=== PATIENT | female | born 1930 | race Caucasian/White ===

== ENCOUNTER → 2016-08-11 | Outpatient (CLI) | payer OTHER, MEDICARE | LOC: BHFA 10:45 | PROVIDERS: ATTEND Internal Medicine Cardiovascular Disease | DX: I63.9 Cerebral infarction, unspecified (principal) ==

== ENCOUNTER 2017-01-31 18:22 | Emergency (ER) | payer OTHER, MEDICARE ==
--- NOTE | 2017-01-31 18:39 | EDPHY ---
H & P HPI/ROS: CHIEF COMPLAINT: facial laceration HISTORY OF PRESENT ILLNESS: This patient is a healthy 86 year old female arriving via EMS from home with a laceration to her left forehead sustained after hitting her head on the floor against her glasses. She states she lost her balance getting off the toilet, but denies dizziness or fainting, and is unable to identify any other precipitating event. No recent trouble with loss of balance or dizziness. This was an isolated episode and she does not feel dizzy now. She denies headache or neck pain. No fever, chills, nausea, weakness, or other associated symptoms. REVIEW OF SYSTEMS: Constitutional: No fever, no chills Eyes: No visual changes ENT: No sore throat Respiratory: No cough, no shortness of breath Cardiac: No chest pain Gastrointestinal: No nausea, no vomiting, no abdominal pain Genitourinary: no dysuria Musculoskeletal: No extremity pain or injury Skin: No rash Neurological: No headache, no numbness, no weakness Psychiatric: No depression Past Medical/Surgical History: Macular degeneration Social History: Nonsmoker. Smoking Status: Never smoked Physical Exam: General Appearance: Alert, pleasant Head: 3cm laceration to left forehead with disruption of galea Eyes: No conjunctival erythema, PERRLA, EOMI ENT, Mouth: No hemotypanum, no oral trauma, no bony tenderness Neck: Non-tender, full range of motion without pain Respiratory: No chest wall tenderness, lungs clear bilaterally Cardiovascular: Regular rate and rhythm Abdomen: Abdomen is soft and non tender Skin: Forehead laceration (see head) Extremities: Nonfocal. Full range of motion without pain Neurological: A&Ox3, normal motor function, normal sensory exam, cranial nerves intact Psychiatric: Mood and affect normal Constitutional: Initial Vital Signs Temperature (C) 37 C 01/31/17 18:28 Heart Rate 78 01/31/17 18:28 Respiratory Rate 15 01/31/17 18:28 Blood Pressure 137/76 H 01/31/17 18:28 O2 Sat (%) 93 01/31/17 18:28 O2 Delivery Mode Room Air Allergies/Adverse Reactions: No Known Allergies Allergy (Verified 01/31/17 18:28) Home Medications: Medication Instructions Recorded Preservision Areds 2 Softgel PO DAILY 12/11/15 Vitamin C PO 12/11/15 Medical Decision Making - Diagnostics Imaging: Discussed imaging studies w/ faculty i on call medical assistant Radiologist Procedures: Procedure: Laceration repair. Verbal consent was obtained from the patient. The linear 3cm laceration on the left forehead was anesthetized using lidocaine 1% with epinephrine. The wound was cleaned with standard ED protocol, draped and explored to its base with a gloved finger. The galea was disrupted. 5 0 Vicryl, 1 suture, to repair the galea. 6 0 Ethilon to repair the scan. The procedure was performed by myself, Dr. Winston. ED Course/Re-evaluation: This patient is an 86 year old female presenting with a 3cm laceration to her left forehead. Plan for CT head to rule out acute intracranial hemorrhage or skull fracture. Spoke with Dr. Esquivel, radiologist. Head CT is negative. The patient tolerated the procedure well. Able to ambulate with a steady gait. She does not feel dizzy or off balance. She will be discharged home in good condition. Return precautions discussed including symptoms of head injury. The patient is comfortable with this plan. Differential Diagnosis: The differential diagnosis for the patient's trauma included but was not limited to skull fracture, cervical spine fracture, intracranial hemorrhage, and spinal injury. - Data Points Medications Given: Discontinued Medications Diphtheria/Tetanus/Acell Pertussis (Boostrix) 0.5 ml IM .ONCE ONE Stop: 01/31/17 19:14 Last Admin: 01/31/17 19:27 Dose: 0.5 ml Departure - Departure Disposition: Home, Routine, Self-Care Clinical Impression: Facial laceration Qualifiers: Encounter type: initial encounter Qualified Code(s): S01.81XA - Laceration without foreign body of other part of head, initial encounter Condition: Good Instructions: Care For Your Stitches (ED), Head Injury (ED), Facial Laceration (ED) Additional Instructions: 1. Return to the Emergency Department in 5 days for suture removal. 2. Keep the suture site clean and dry. You may shower, but do not soak the site. 3. Return the the Emergency department if you develop heat, redness, or drainage to the injury area, or if you experience weakness or numbness on one side of your body, nausea, severe headache, or other worsening of condition. Referrals: Taryn Turner MD [Medical Doctor] - As per Instructions Report Scribed for: Viviana Winston Report Scribed by: Kristy Reyes Date of Report: 01/31/17 Time of Report: 18:40 Physician Review and Approval Statement: 01/31/17 19:09 Portions of this note were transcribed by a medical manager. I personally performed a history, physical exam, medical decision making, and confirmed accuracy of information the transcribed note.
[2017-01-31] MEDS ORDERED: TDAP ADULT 0.5 ML INJ (BOOSTRIX) IM ONE (19:13)
[2017-01-31 20:12] VITALS: BP 135/68; PULSE 74; RESP 16; TEMP 98.6; O2SAT 94
== END 2017-01-31 20:21 | disposition home or self-care (01) ==
LOC: EDUNIT#
PROC: 0HQ1XZZ Repair Face Skin, External Approach (ICD-10-PCS; principal; 2017-01-31)
DX: S01.81XA Laceration without foreign body of other part of head, initial encounter (principal); Z23 Encounter for immunization; W25.XXXA Contact with sharp glass, initial encounter; Y92.009 Unspecified place in unspecified non-institutional (private) residence as the place of occurrence of the external cause

== ENCOUNTER → 2017-07-14 | Outpatient (CLI) | payer OTHER, MEDICARE | LOC: FIMAGING 12:45 | PROVIDERS: ATTEND Internal Medicine | DX: Z12.31 Encounter for screening mammogram for malignant neoplasm of breast (principal) | CPT/HCPCS: G0202 ==

== ENCOUNTER 2017-10-28 15:19 | Inpatient (IN) | payer OTHER, MEDICARE ==
--- NOTE | 2017-10-28 15:22 | EDPHY ---
H & P Time Seen by Provider: 10/28/17 15:21 HPI/ROS: HPI: This is a 86-year-old female who presents with Chief Complaint: Fall in bath tub approximately 6 hr prior to arrival Location: Body Quality: Fall Duration: Unknown Signs and Symptoms: No bleeding, no radiation, no numbness, no weakness, no tingling, no incontinence, no decreased range of motion, no swelling, + pain, no fever Timing: Unknown Severity: [id number] Context: Patient presents via EMS with patient advocate, resident at [facility], full code status. Physician order lab work this morning that showed leukocytosis of 12 K. Patient advocate reports that patient has had lethargy over the last 2 days with a mild nonproductive cough. When the patient advocate went back to [facility] patient was laying next to the bath tub. Patient has dementia and is unclear how long that she was sitting next to the tub. Complains of some left hip pain. Ambulatory at the scene with cashier assistant. LOC unknown. Time of fall unknown but last seen for breakfast. Modifying Factors: none Comment: ROS: Limited due to dementia MEDICAL/SURGICAL/SOCIAL HISTORY: Medical history: Macular degeneration Surgical history: Denies Social history: Lives at [facility] CONSTITUTIONAL: petite, elderly white female, awake and alert, no obvious distress HEENT: Atraumatic and normocephalic, PERRL, EOMI. no globe entrapment, no raccoon eyes. no Raya signs.Tympanic membranes clear. No tympanic membrane rupture. Nares patent; no septal hematoma. Oropharynx clear, no exudate and moist pink mucosa. No malocclusion. no dental trauma. Airway patent. No lymphadenopathy. No JVD. NECK: supple, no midline tenderness, flexion 45 degrees, extension 45 degrees, right and left lateral flexion 45 degrees. No meningismus. Cardiovascular: Normal S1/S2, regular rate, regular rhythm, without murmur rub or gallop. PULMONARY/CHEST: Symmetrical and nontender. no crepitus. Rhonchi and rales bilaterally. Good air movement. No accessory muscle usage. ABDOMEN: Soft, nondistended, nontender, no ecchymosis, no rebound, no guarding , no peritoneal signs, no masses or organomegaly. No CVAT. PELVIC: Moderate pain with rocking; left hip pain with flexion and extension as well as internal and external rotation. BACK: No midline tenderness, no paraspinous spasm, deep tendon reflexes 2/2, no pain with right straight leg raise EXTREMITIES: 2/2 pulses, no deformities, no clubbing, no cyanosis or edema. NEUROLOGICAL: no focal neuro deficits. Alert to self and follows simple commands. SKIN: Warm and dry, pallor, no erythema. no rash. Good capillary refill. Source: Patient, Family (Patient advocate) Exam Limitations: Clinical condition - Medical/Surgical History Hx Asthma: No Hx Chronic Respiratory Disease: No Hx Diabetes: No Hx Cardiac Disease: No Hx Renal Disease: No Hx Cirrhosis: No Hx Alcoholism: No Hx HIV/AIDS: No Hx Splenectomy or Spleen Trauma: No Other PMH: macular degeneration - Social History Smoking Status: Never smoked Constitutional: Initial Vital Signs Temperature (C) 36.6 C 10/28/17 15:27 Heart Rate 87 10/28/17 15:27 Respiratory Rate 16 10/28/17 15:27 Blood Pressure 123/75 H 10/28/17 15:27 O2 Sat (%) 90 L 10/28/17 15:27 O2 Delivery Mode Room Air Allergies/Adverse Reactions: No Known Allergies Allergy (Verified 01/31/17 18:28) Home Medications: Medication Instructions Recorded Preservision Areds 2 Softgel PO DAILY 12/11/15 Vitamin C PO 12/11/15 Medical Decision Making - Diagnostics EKG Interpretation: 12 lead EKG: Indication: Hypoxia Rhythm: Normal sinus rhythm, rate 76 per per minute [place]: Left Intervals: Normal 1st degree AV block ST segments: Nonspecific changes T segments: Inverted T-waves INTERPRETATION: No acute ischemic changes The 12 lead EKG was interpreted by myself and with attending. Imaging Results: Imaging Impressions Chest X-Ray 10/28/17 15:36 Impression: 1. Cardiomegaly without failure 2. No pneumonia or evidence for fat embolism. 2. Left Hip Technique: AP pelvis and frog-leg left hip. Clinical Indications: Pain post fall Findings: There is a subtly impacted subcapital left hip fracture. The pelvic ring is intact. The right hip looks normal. There are calcified pelvic uterine fibroids. Impression: Left subcapital hip fracture. Head CT 10/28/17 15:51 Impression: Advanced senescent features, with no acute intracranial abnormality identified on this unenhanced CT evaluation. If there is further clinical concern regarding the patient's symptoms, MR imaging is suggested, if not otherwise contraindicated. Findings were discussed with Sarah Pereyra PA-C at 16:45, on 10/28/2017. Hip X-Ray 10/28/17 15:51 Impression: 1. Cardiomegaly without failure 2. No pneumonia or evidence for fat embolism. 2. Left Hip Technique: AP pelvis and frog-leg left hip. Clinical Indications: Pain post fall Findings: There is a subtly impacted subcapital left hip fracture. The pelvic ring is intact. The right hip looks normal. There are calcified pelvic uterine fibroids. Impression: Left subcapital hip fracture. ED Course/Re-evaluation: Sepsis workup initiated including chest x-ray and urinalysis; EKG; left hip x- ray; head CT scan Given Duoneb O2 sats 80-90% upon arrival on room air 1655: Called by radiologist who advised that head CT scan shows no acute intracranial process but does show age-related changes. 1657: Labs reviewed: ProBNP elevated. Chart review does not show echocardiogram in the system-will need. Left hip x-ray my read shows subtly impacted subcapital left hip fracture Chest x-ray my read shows no clear opacity; hypoxia noted upon arrival will cover for community-acquired pneumonia with Rocephin and Zithromax Still waiting urinalysis 1700: ED decision to consult for admission. Called Hospitalist, Dr. Gan , as well as Orthopedics, Dr. Ballard, for admission for hypoxia, CHF, possibility of pneumonia as well as impacted subcapital left hip fracture. Will need medical clearance prior to surgery. Last meal was breakfast. This patient was seen under the supervision of my secondary supervising physician. I evaluated care for this patient independently. Discussed this patient with Dr. Mcfadden who did not see the patient. Differential Diagnosis: Altered mental status including but not limited to hypoglycemia, infectious process, electrolyte abnormality, head injury and intoxicants. - Data Points Laboratory Results: Laboratory Results 10/28/17 16:00 10/28/17 16:00 10/28/17 10/28/17 10/28/17 16:00 16:00 16:00 WBC REJ RBC Not Reported Hgb Not Reported Hct Not Reported MCV Not Reported MCH Not Reported MCHC Not Reported RDW Not Reported Plt Count Not Reported MPV Not Reported Neut % (Auto) Not Reported Lymph % (Auto) Not Reported [place] % (Auto) Not Reported Eos % (Auto) Not Reported Baso % (Auto) Not Reported Nucleat RBC Rel Count Not Reported Absolute Neuts (auto) Not Reported Absolute Lymphs (auto) Not Reported Absolute Monos (auto) Not Reported Absolute Eos (auto) Not Reported Absolute Basos (auto) Not Reported Absolute Nucleated RBC Not Reported Immature Gran % Not Reported Immature Gran # Not Reported PT 14.0 SEC SEC (12.0-15.0) INR 1.06 (0.83-1.16) APTT 25.1 SEC SEC (23.0-38.0) VBG Lactic Acid Sodium 139 mEq/L mEq/L (135-145) Potassium 4.2 mEq/L mEq/L (3.5-5.2) Chloride 102 mEq/L mEq/L (97-110) Carbon Dioxide 23 mEq/l mEq/l (22-31) Anion Gap 14 mEq/L mEq/L (8-16) BUN 14 mg/dL mg/dL (7-23) Creatinine 0.9 mg/dL mg/dL (0.6-1.0) Estimated GFR 59 Glucose 82 mg/dL mg/dL (70-100) Calcium 8.9 mg/dL mg/dL (8.5-10.4) Total Bilirubin 0.8 mg/dL mg/dL (0.1-1.4) Conjugated Bilirubin 0.3 mg/dL mg/dL (0.0-0.5) Unconjugated Bilirubin 0.5 mg/dL mg/dL (0.0-1.1) AST 28 IU/L IU/L (14-46) ALT 30 IU/L IU/L (9-52) Alkaline Phosphatase 102 IU/L IU/L (38-126) Creatine Kinase 52 IU/L IU/L (0-156) Troponin I < 0.012 ng/mL ng/mL (0.000-0.034) NT-Pro-B Natriuret Pep 1160 pg/mL H pg/mL (0-450) Total Protein 7.0 g/dL g/dL (6.3-8.2) Albumin 3.9 g/dL g/dL (3.5-5.0) 10/28/17 16:00 WBC RBC Hgb Hct MCV MCH MCHC RDW Plt Count MPV Neut % (Auto) Lymph % (Auto) [place] % (Auto) Eos % (Auto) Baso % (Auto) Nucleat RBC Rel Count Absolute Neuts (auto) Absolute Lymphs (auto) Absolute Monos (auto) Absolute Eos (auto) Absolute Basos (auto) Absolute Nucleated RBC Immature Gran % Immature Gran # PT INR APTT VBG Lactic Acid 2.8 mmol/L H mmol/L (0.7-2.1) Sodium Potassium Chloride Carbon Dioxide Anion Gap BUN Creatinine Estimated GFR Glucose Calcium Total Bilirubin Conjugated Bilirubin Unconjugated Bilirubin AST ALT Alkaline Phosphatase Creatine Kinase Troponin I NT-Pro-B Natriuret Pep Total Protein Albumin Medications Given: Discontinued Medications Albuterol/Ipratropium (Duoneb) 3 ml IH EDNOW ONE Stop: 10/28/17 15:38 Last Admin: 10/28/17 16:57 Dose: 3 ml Departure - Departure Disposition: [facility] Inpatient Acute Clinical Impression: Hypoxia Subcapital fracture of left hip Qualifiers: Encounter type: initial encounter Fracture type: closed Qualified Code(s): S72.012A - Unspecified intracapsular fracture of left femur, initial encounter for closed fracture Acute congestive heart failure Qualifiers: Heart failure type: unspecified Qualified Code(s): I50.9 - Heart failure, unspecified Condition: Fair
[2017-10-28] MEDS ORDERED: IPRATROPIUM/ALBUTEROL 3 ML DEYVIAL IH ONE (15:37)
--- NOTE | 2017-10-28 15:53 | CPEKG ---
Heart Rate: 76 RR Interval: 789 P-R Interval: 224 QRSD Interval: 90 QT Interval: 384 QTC Interval: 432 P [place]: 73 QRS [place]: -60 T Wave [place]: 17 EKG Severity - ABNORMAL ECG - EKG Impression: SINUS RHYTHM EKG Impression: PAIRED SUPRAVENTRICULAR PREMATURE COMPLEXES EKG Impression: FIRST DEGREE AV BLOCK EKG Impression: LEFT ANTERIOR FASCICULAR BLOCK EKG Impression: ST T ABNORMALITY IN ANTERIOR LEADS SUGGESTS WELLEN'S T WAVE, ISCHEMIA Electronically Signed By: Bismark Jaramillo 01-Nov-2017 13:45:42
[2017-10-28 16:34] LABS: INR 1.06 (0.83-1.16)
[2017-10-28 16:36] LABS: CREATINE KINASE 52 IU/L (0-156)
[2017-10-28] MEDS ORDERED: IPRATROPIUM/ALBUTEROL 3 ML DEYVIAL ONE (16:42)
[2017-10-28] MEDS ORDERED: cefTRIAXone 2 GM in STERILE WATER INJ 20 ML IV ONE (16:59)
[2017-10-28] MEDS ORDERED: AZITHROMYCIN IV 500 MG in D5W 250 ML IV ONE (16:59)
[2017-10-28 17:47] LABS: PLATELET COUNT 242 10^3/uL (150-400)
[2017-10-28] MEDS ORDERED: HYDROmorphone HCL/NS 0.5 MG/ML SYR IVP PRN (17:59)
[2017-10-28] MEDS ORDERED: ACETAMINOPHEN 325 MG TAB PO PRN (17:59)
[2017-10-28] MEDS ORDERED: ALBUTEROL 3 ML DEYVIAL IH PRN (17:59)
[2017-10-28] MEDS ORDERED: ONDANSETRON DISINTEGRATING 4 MG TAB PO PRN (17:59)
[2017-10-28] MEDS ORDERED: ONDANSETRON 4 MG/2 ML VIAL IVP PRN (17:59)
[2017-10-28] MEDS ORDERED: oxyCODONE IR 5 MG TAB PO PRN (17:59)
[2017-10-28] MEDS ORDERED: NS 1,200 ML IV ONE (19:07)
[2017-10-28] MEDS ORDERED: fentaNYL 100 MCG/2 ML INJ IVP ONE (19:37)
[2017-10-28] MEDS: IPRATROPIUM/ALBUTEROL 3 ML DEYVIAL IH SCH (21:40)
--- NOTE | 2017-10-28 22:32 | GHP ---
[f rep st] HISTORY AND PHYSICAL DATE OF ADMISSION: 10/28/2017 CHIEF COMPLAINT: Hip pain. HISTORY: This is an 86-year-old female with a past medical history of dementia, currently residing a t Memory Care Unit, and presenting after being found down next to her bathtub at home. The patient i s unable to report what happened, but it seems that she likely fell and was unable to get back up aga in. It also appears from caregiver report that she has been feeling somewhat unwell for the last cou ple of days with a mild nonproductive cough and shortness of breath. At the time my evaluation, namita ent is really unable to give much of a history and has no complaints. She is noted to have a left lincoln bcapital hip fracture that is in need of surgical intervention, but also was noted to be mildly low o n her O2 needs, and therefore surgery is being deferred at least until the morning to determine how s he is doing overnight. PAST MEDICAL HISTORY: 1. Dementia. 2. Macular degeneration. 3. Achalasia. PAST SURGICAL HISTORY: Unobtainable by the patient and unavailable per chart review. SOCIAL HISTORY: Again, unobtainable by patient, but per chart review, patient resides at [facility] . It is unclear if she has much family involved, though caregiver was present at her bedside. FAMILY HISTORY: This was reviewed and noncontributory. REVIEW OF SYSTEMS: Unobtainable secondary to patient's advanced dementia. MEDICATIONS: 1. Multivitamin (PreserVision). 2. Calcium and vitamin D. 3. Aspirin 81 mg. ALLERGIES: No known drug allergies. PHYSICAL EXAMINATION: VITAL SIGNS: Blood pressure 142/77, heart rate 89, respiratory rate 16, O2 sa turation is 91% on 2 L, temperature is 37.1. GENERAL APPEARANCE: This is a frail, elderly female. She is awake and alert. She is in no acute distress. HEENT: Eyes: Anicteric. Oropharynx: Clear. CARDIOVASCULAR: RRR, no MRG. PULMONARY: CTA bilaterally. ABDOMEN: Soft, nontender, nondistende d. EXTREMITIES: Left hip is tender to palpation. Otherwise, no clubbing, cyanosis, or edema. SKIN : Warm, dry, well perfused. NEUROPSYCHIATRIC: Oriented and appropriate, pleasant. CLINICAL DATA: 1. Chest x-ray, personally reviewed and interpreted, shows cardiomegaly without evidence of acute fa ilure. There is no pneumonia. 2. Head CT negative for acute findings. 3. Hip x-ray: Left subcapital hip fracture is appreciated. 4. EKG, personally reviewed and interpreted, shows sinus rhythm. There are paired PVCs and first-de gree A-V block, otherwise unremarkable. ASSESSMENT AND PLAN: This is an 86-year-old female, found down with a left subcapital hip fracture a nd mild hypoxemia. 1. Left subcapital hip fracture. This is in need of surgical intervention, though in discussion wit h Dr. Ballard, this is not emergent, though ideally would be performed in the morning. At the time of patient's initial evaluation, her diagnosis was somewhat unclear with mild hypoxia and uncertainty as to whether her chest x-ray showed overt failure and/or pneumonia. At this point, on review of est x-ray, there is evidence of cardiomegaly, but no evidence of acute heart failure. Also, no evide nce of pneumonia or other acute pulmonary issues. Suspect that patient will be cleared for surgery i n the morning, so long as her respiratory status remained stable or continues to improve. I will hol d her aspirin for now. She is not on any other anticoagulants. 2. Acute hypoxic respiratory failure. The patient presenting with O2 in the high 80s to low 90s on room air, and saturating well now in the low 90s with 2 L supplemental O2. Again, personally reviewe d chest x-ray and did not see evidence for acute heart failure nor pneumonia. She was given ceftriax one, azithromycin in the ER. We will hold off on further antibiotics for the time being unless she s hould develop signs or symptoms of infection. I suspect her hypoxia is largely either chronic or due to atelectasis. We will see if she can tolerate incentive spirometry and will wean oxygen as we are able. 3. Leukocytosis. Suspect this is stress response. Again, she does not have any other true signs or symptoms of infection at this point. Will trend overnight. 4. Fall. Unable to obtain much of a history from the patient in order to be certain that this was n ot something like a loss consciousness. We will monitor on telemetry and obtain serial troponins ove rnmonica. Discussed with caregiver, and given her elevated BNP and concerns raised by the emergency ro om for possible congestive heart failure, they would like an echocardiogram to be performed in the mo rning, and this has been ordered. I do not suspect that the findings of this would prohibit surgery from going forward, however. 5. Dementia. Again, this is rather advanced. Patient resides in Memory Care Unit. 6. Code status: The patient is full code. DISPOSITION: Inpatient status. The patient will need greater than 48-hour stay for evaluation and m anagement of above. She will likely need to transition to SNF after discharge, given need for surgic al intervention. Patient is new to my care. Old records reviewed, summarized as per HPI and past medical history. Ca re plan reviewed with ER physician, as per above. Further history was obtained from caregiver mel askew at bedside. Care plan also reviewed with Dr. Ballard, as per above, with hopes for proceeding for surgery in the morning unless contraindicated by her events overnight. /[id number]/MODL
--- NOTE | 2017-10-29 00:24 | PDMN ---
Medical Necessity Medical necessity: C/M review: est. > 2 MN LOS for eval and TX of acute -left subcapital hip fracture, hypoxic respiratory failure, leukocytosis requiring planned Orthopedic consult, echocardiogram, serial troponins overnight, 2017 surgical intervention, ongoing Duonebs, pain management, cardiac monitoring , pulse oximetry, supplemental O2, comorbid fall prior to this admission, advanced dementia, history of macular degeneration, achalasia per H/P.
[2017-10-29 03:50] LABS: PLATELET COUNT 212 10^3/uL (150-400)
[2017-10-29] MEDS: IPRATROPIUM/ALBUTEROL 3 ML DEYVIAL IH SCH ×4 (04:58→20:28)
[2017-10-29] MEDS ORDERED: ceFAZolin 2 GM/DEXTROSE 100 ML IV ONE (07:24)
[2017-10-29] MEDS ORDERED: ceFAZolin 2 GM/SWFI 2 GM/20 ML SYR IVP ONE (07:30)
[2017-10-29] MEDS ORDERED: BUPIVACAINE/EPI 0.5% 30 ML SDV ONE (07:33)
[2017-10-29] MEDS ORDERED: ceFAZolin 1 GM/5 ML SYR ONE (07:34)
--- NOTE | 2017-10-29 07:48 | GHP ---
[f rep st] PREOP HISTORY AND PHYSICAL DATE OF ADMISSION: 10/28/2017 REASON FOR CONSULTATION: Left hip fracture. HISTORY OF PRESENT ILLNESS: Jessica is an 7y-year-old female who had an unwitnessed fall at the memory care unit for her fpc earlier on Tuesday. She was brought to the emergency department via ambulance. X-rays were obtained which showed a subcapital hip fracture on the left. She was somewhat hypoxic and had been complaining of a nonproductive cough for several days with some question of whether she may be developing a pneumonia and she was given some antibiotics in the emergency department. Subsequent chest x-ray did not show any infiltrates on the x-ray and antibiotics have been stopped. O2 requirements overnight have been 2 L which have been stable and she has been in the low 90s on oxygen saturation on that. PRIOR MEDICAL HISTORY: Dementia. SOCIAL HISTORY: She resides at [facility]. Does have a power of deputy prosecuting attorney who lives in [place], who I spoke to, his name is Efrain Fall, telephone . MEDICATIONS: Calcium, 81 mg aspirin and a multivitamin. ALLERGIES: No known drug allergies. REVIEW OF SYSTEMS: Difficult to obtain at this time due to her dementia. PHYSICAL EXAMINATION: GENERAL: Pleasant, somewhat confused. Her history has been obtained from the chart. HEENT: Normocephalic, atraumatic. Extraocular muscles intact. NECK: Supple. There is no lymphadenopathy. No JVD. CHEST: Clear to auscultation. CARDIOVASCULAR: Regular rate and rhythm. ABDOMEN: Soft, nontender, nondistended. VITAL SIGNS: Heart rate is 104, respiratory rate 18, 94% on 2 L room air, blood pressure is 130/70. X-RAYS: 2 views of her hip were reviewed. They show an impacted subcapital hip fracture. 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 ASSESSMENT: Left hip fracture. PLAN: I spoke with the patient's advocate who is here with her at her bedside as well as her power of deputy prosecuting attorney. I think the best course of action would be to proceed with a bipolar hemiarthroplasty on the left. That will allow her weightbearing as tolerated immediately versus trying to do an open reduction and internal fixation which will have to be partial weightbearing. With her level of dementia, I do not think she could follow those requirements. They are in agreement with that choice. The risks I also spoke with Dr. Alejandra Proctor who will be admitting the patient. We will watch oxygen saturation overnight as well as for any further signs of worsening potential for the pneumonia. If she remains stable overnight, we will plan on surgery in the morning. If not, then we can move this surgery back a day or 2. Plan now will be surgery at 8 a.m., Tuesday. /[id number]/MODL MTDD
[2017-10-29] MEDS ORDERED: HYDROmorphONE/DILAUDID 2 MG/ML INJ IVP PRN (07:49)
[2017-10-29] MEDS ORDERED: DEXAMETHASONE 4 MG/ML VIAL IVP PRN (07:49)
[2017-10-29] MEDS ORDERED: fentaNYL 100 MCG/2 ML INJ IVP PRN (07:49)
[2017-10-29] MEDS ORDERED: ONDANSETRON 4 MG/2 ML VIAL IVP PRN (07:49)
[2017-10-29] MEDS ORDERED: ALBUTEROL 3 ML DEYVIAL IH PRN (07:49)
[2017-10-29] MEDS ORDERED: NALOXONE HCL 0.4 MG/ML INJ IVP PRN (07:49)
--- NOTE | 2017-10-29 07:57 | PDANEPAE ---
ANE History of Present Illness Left Hip ANE Past Medical History - Cardiovascular History Hx Hypertension: No Hx Arrhythmias: No Hx Chest Pain: No Hx Coronary Artery / Peripheral Vascular Disease: No Hx CHF / Valvular Disease: No Hx Palpitations: No - Pulmonary History Hx COPD: No Hx Asthma/Reactive Airway Disease: No Hx Recent Upper Respiratory Infection: No Hx Oxygen in Use at Home: No Hx Sleep Apnea: No - Neurologic History Hx Cerebrovascular Accident: No Hx Seizures: No Hx Dementia: No - Endocrine History Hx Diabetes: No - Renal History Hx Renal Disorders: No - Liver History Hx Hepatic Disorders: No - Neurological & Psychiatric Hx Hx Neurological and Psychiatric Disorders: No - Cancer History Hx Cancer: No - Congenital Disorder History Hx Congenital Disorders: No - GI History Hx Gastrointestinal Disorders: Yes Gastrointestinal History Comment: esophageal stricture - Other Health History Other Health History: macular degeneration- wet - Chronic Pain History Chronic Pain: No - Surgical History Prior Surgeries: bilat cataract surgery in 2004 ANE Review of Systems Review of Systems: - Exercise capacity Exercise capacity: limited by disability ANE Patient History - Allergies Allergies/Adverse Reactions: No Known Allergies Allergy (Verified 01/31/17 18:28) - Home Medications Home Medications: Aspirin EC [Aspirin EC 81 mg (*)] 81 mg PO DAILY 10/28/17 [Last Taken Unknown] Calcium Carb W/Vit D [Calcium Carb W/Vit D 500/200 (*)] 500 mg PO DAILY [Last Taken Unknown] Vit A/Vit C/Vit E/Zinc/Copper [Preservision Tablet] 1 each PO DAILY 10/28/17 [ Last Taken Unknown] - Smoking Hx Smoking Status: Never smoked - Family Anes Hx Family Hx Anesthesia Complications: none ANE Labs/Vital Signs - Labs Result Diagrams: 10/29/17 03:09 10/29/17 03:09 - Vital Signs Blood Pressure: 130/70 Heart Rate: 104 Respiratory Rate: 18 O2 Sat (%): 94 Height: 162.56 cm Weight: 43.5 kg ANE Physical Exam - Airway Neck exam: FROM Mallampati Score: Class 2 Mouth exam: poor dentition - Pulmonary Pulmonary: no respiratory distress - Cardiovascular Cardiovascular: regular rate and rhythym - ASA Status ASA Status: III (Prelim ECHO report: Bicuspid Aortic, Mod Pulm HTN, Enlarged R Heart) ANE Anesthesia Plan Anesthesia Plan: general endotracheal anesthesia
[2017-10-29] MEDS ORDERED: fentaNYL 100 MCG/2 ML INJ ONE (08:01)
[2017-10-29] MEDS ORDERED: PROPOFOL 200 MG/20 ML VIAL ONE (08:02)
[2017-10-29] MEDS ORDERED: ROCURONIUM 50 MG/5 ML VIAL ONE (08:03)
[2017-10-29] MEDS ORDERED: SUGAMMADEX SODIUM 200 MG/2 ML VIAL IVP ONE (08:50)
--- NOTE | 2017-10-29 09:05 | POSTANESTH ---
Post Anesthetic Evaluation Cardiovascular Status: Normal, Stable Respiratory Status: Normal, Stable Level of Consciousness/Mental Status: Mildly Sleepy, Arousable Pain Control: Adequate, Prn Tx Ordered Nausea/Vomiting Control: Adequate, Prn Tx Ordered
--- NOTE | 2017-10-29 09:08 | POSTOPPROG ---
Post Op Note Date of Operation: 10/29/17 Surgeon: Celestine Ballard [place] Guide: Tim Pandey Anesthesia: GET(General Endotracheal) Pre-op Diagnosis: LT Femoral neck fx Post-op Diagnosis: same Procedure: LT bipolar hemiarthroplasty Inf/Abcess present in the surg proc area at time of surgery?: No Complications: none
[2017-10-29] MEDS ORDERED: OXYCODONE/APAP 5/325 TAB PO PRN (09:09)
[2017-10-29] MEDS ORDERED: HYDROCODONE/APAP 5/325 TAB PO PRN (09:09)
--- NOTE | 2017-10-29 09:24 | GOP ---
[f rep st] OPERATIVE REPORT DATE OF OPERATION: 10/29/2017 SURGEON: Celestine Ballard MD LOGGER: Ramesh Pandey, BUSINESS INTELLIGENCE ETL DEVELOPER, [facility]. ANESTHESIA: General. ANESTHESIOLOGIST: Ramesh Murguia DO. PREOPERATIVE DIAGNOSIS: Left femoral neck fracture. POSTOPERATIVE DIAGNOSIS: Left femoral neck fracture. PROCEDURE PERFORMED: Left bipolar hemiarthroplasty. FINDINGS: ESTIMATED BLOOD LOSS: 100 mL. INDICATIONS: This is an 86-year-old female, who fell yesterday at her memory care facility. Brought to the emergency department. X-rays were obtained which showed a femoral neck fracture. She did landis ve some hypoxia. We admitted her to the hospitalist service overnight. She remained stable and she wa s brought to the operating room today for definitive fixation of her fracture. DESCRIPTION OF PROCEDURE: After appropriate informed consent was obtained, patient was taken to the operating room, placed supine on the operating table. Time-out was performed. Patient was identified . Correct site was identified and matched to the radiographs as well in the room. She received 2 g A ncef preoperatively. Following the induction of general endotracheal tube anesthesia, she was positi oned on her right hip with the left hip up. All bony prominences were well padded. Left hip was ster ilely prepped. I made a standard posterior incision over the greater trochanter. Soft tissues were c arefully dissected. Bleeding was controlled with electrocautery. I split the IT band and took down wh at was left of the external rotators, tagged them for later repair. The capsule was excised from the head and neck. I used the oscillating saw. I made a femoral neck cut. Removed the remaining neck and head. This measured 43. Trial showed 43. Gave good fit and stability. A 44 was a little tight. We then entered the femoral canal, broached up to a size 3 with excellent stability. We trialed the 3 s tem and 43 head with good stability, good range of motion and good baptist of leg lengths. The t rials were removed. The wound was irrigated with pulsatile lavage. We placed our final implants, ta pped them in place, reduced the hip. Again, stability was checked. The hip was stable in all position s and the leg lengths were equivalent. Wound was irrigated a final time. The external rotators were repaired back to greater trochanter with #2 FiberWire. Superficial layers closed with 0 Vicryl and 2 -0 Vicryl on the skin. The skin was closed with elpidio. I instilled 20 mL of 0.5% Marcaine with ep inephrine on the incision. Sterile dressing was applied. Tim Pandey's assistance was required thro ughout the entire case. COMPLICATIONS: None. DRAINS: None. IMPLANTS USED: A Salvatore Accolade-II 132 degree angle, size 3 femur, a +0, 26 mm head and a [address] diameter head press-fit. /[id number]/MODL
--- NOTE | 2017-10-29 10:14 | ECHO ---
[email or web address] [address] Main: [phone] Fax: [email or web address] Echocardiogram Name: GREGORY RAMIRES MR#: [id number] Study Date: 10/29/2017 Study Time: 07:26 AM Date of : 1930 Age: 86 year(s) Height: 162.6 cm (64 in.) Weight: 39.92 kg (88 lb.) BSA: 1.38 m2 Gender: Female Examination: Echo Indication: Pulmonary edema/elevated BNP/Hip fracture Image Quality: Contrast: Requested by: John Gan BP: 130 mmHg/70 mmHg Heart Rate: Rhythm: Indication: Pulmonary edema/elevated BNP/Hip fracture Procedure Staff Room Service Waiter: Zainab Felix RDCS Reading Physician: Andreia Barahona MD Requesting Provider: Conclusions: Normal size left ventricle. Normal global systolic LV function. The ejection fraction is estimated to be 65-70 %. No regional wall motion abnormality. Grade 1 diastolic dysfunction (abnormal relaxation). Mildly dilated right ventricle. Normal RV function. Mild to moderate mitral regurgitation. There is no aortic valve regurgitation. No aortic valve stenosis is present. Bicuspid aortic valve with raphe.. Moderate tricuspid regurgitation is present. The pulmonary artery pressure is moderately to severely increased. RVSP is 56-61mmHG.. Mildly dilated ascending aorta measuring 4.3 cm. Recommend repeat echo in one year to follow ascending aortic dilation valvular disease and pulmonary HTN Measurements: Chambers Valvular Assessment AV/MV Valvular Assessment TV/PV Normal Normal Normal Name Value Range Name Value Range Name Value Range Ao Dulce (MM): 3.4 cm (2.2 cm-3.7 AV meanP mmHg ( - ) TR Vmax: 3.56 mm/s ( - ) cm) MV E Vmax: 0.65 m/s ( - ) TR PGmax: 51 mmHg ( - ) IVSd (2D): 0.6 cm (0.6 cm-1.1 MV A Vmax: 0.82 m/s ( - ) syst. PAP: 61 mmHg ( - ) cm) MV E/A: 0.79 ( - ) LVDd (2D): 4.0 cm (3.9 cm-5.3 cm) LVDs (2D): 2.1 cm (2.1 cm-4 cm) Patient: GREGORY RAMIRES Study Date: 10/29/2017 Page 1 of 2 07:26 AM LVPWd (2D): 0.6 cm ( - ) LVEF (2D): 80 (>=54 %) EF Range: 65-70 % Continued Measurements: Chambers Valvular Assessment AV/MV Valvular Assessment TV/PV Name Value Name Value Name Value LADs: 2.7 cm MV E' Septal: 0.06 m/s CVP (est.): 10 mmHg MV E/E' Septal: 11.30 MV E/E' Lateral: 12.90 Additional Vessels Name Value Ao Ascendin.3 cm Inferior Vena Cava: 2.4 cm Findings: Left Ventricle: Normal size left ventricle. No LV hypertrophy. Normal global systolic LV function. The ejection fraction is estimated to be 65-70 %. No regional wall motion abnormality. Grade 1 diastolic dysfunction (abnormal relaxation). Right Ventricle: Mildly dilated right ventricle. Normal RV function. There is a moderator band noted in the right ventricle. Left Atrium: The left atrium is normal in size. Right Atrium: The right atrium is mildly dilated. Mitral Valve: Mild mitral annular calcification. Mild to moderate mitral regurgitation. Aortic Valve: Moderate aortic cusp calcification is present. There is no aortic valve regurgitation. No aortic valve stenosis is present. Bicuspid aortic valve with raphe.. Tricuspid Valve: The tricuspid valve is normal in appearance and function. Moderate tricuspid regurgitation is present. The pulmonary artery pressure is moderately to severely increased. RVSP is 56-61mmHG.. Pulmonic Valve: The pulmonic valve is normal in appearance and function. Trivial pulmonic valve regurgitation. Aorta: The aorta is normal. Mildly dilated ascending aorta measuring 4.3 cm. Pericardium: No pericardial effusion. (No Signature Object) Patient: GREGORY RAMIRES Study Date: 10/29/2017 Page 2 of 2 07:26 AM [id number]
--- NOTE | 2017-10-29 10:39 | HOSPPROG ---
Hospitalist Progress Note Assessment/Plan: 86 yo female with dementia residing at [facility], fell and sustained left hip fracture. Initial evaluation revealed hypoxemia, echo is normal except for 4.3cim dilated aorta, stable. Patient new to me today. Lactate elevated on admission. Patient currently post op left hemiarthroplasy. -left hip subcapital fracture: Post hemiarthroplasty, doing well, alert, interactive, very poor memory. Does not know where she is. -Sepsis POA with elevated lactacte, normal WBC, afebrile, blood cultures pending -hypoxemia 2/2 atelectasis, ? if underlying pulmonary disease. O2 as needed. No signs of pneumonia on CXR. No Abx needed for pulmonary. ECHO is normal, ECG without acute changes. Echo shows RVSP elevated and aortic dilation at 4.3 cm. -Weight loss of 10 pounds recently. mammography is normal in past. No other history now. Will check stool guaiac and possible out patient workup -dementia -code: DNR Plan: -O2, bronchodilator if needed, no antibiotic, cardiac function appears stable and normal. Sepsis 2/2 prolonged down time, dehydration, atelectasis. -DVT treatment in 2-3 days -SCD's now -PT in AM Time: 45 minutes Subjective: alert, no complaints, Oriented x 0 Objective: Vital Signs Temp Pulse Resp BP Pulse Ox 37.1 C 77 15 110/61 92 10/29/17 09:04 10/29/17 09:04 10/29/17 10:21 10/29/17 10:21 10/29/17 10:16 Laboratory Results 10/29/17 03:09 10/29/17 03:09 10/28/17 10/29/17 10/30/17 05:59 05:59 05:59 Intake Total 200 5 Output Total 225 Balance -25 5 PT 14.0 SEC (12.0-15.0) 10/28/17 16:00 INR 1.06 (0.83-1.16) 10/28/17 16:00 - Time Spent With Patient Time Spent with Patient: greater than 35 minutes Time Spent with Patient: Greater than 35 minutes spent on this patients care, greater than 50% of time spent counseling, educating, and coordinating care regarding the above mentioned plan. - Pending Discharge Pending Discharge Within 24 Hours: No Pending Discharge Within 48 Hours: No - Physical Exam Constitutional: no apparent distress Eyes: PERRL, anicteric sclera Ears, Nose, Mouth, Throat: moist mucous membranes, hearing normal Cardiovascular: regular rate and rhythym, no murmur, rub, or gallop, other ( sinus rhythm on monitor no ectopy) Respiratory: no respiratory distress, no rales or rhonchi, clear to auscultation Gastrointestinal: normoactive bowel sounds, soft, non-tender abdomen, no palpable masses Genitourinary: no bladder fullness Skin: warm Musculoskeletal: generalized weakness, other (left hip post op arthroplasty. pulses 1-2 + , normal, skin warm) Neurologic: CN II-XII Intact Psychiatric: interacting appropriately, not anxious ICD10 Worksheet Patient Problems: Problems Problem Status Onset Acute congestive heart failure Acute Hypoxia Acute Subcapital fracture of left hip Acute Esophageal foreign body Acute
[2017-10-29] MEDS: D5W 1/2 NS W/ 20 KCl/L 1,000 ML IV SCH (11:37)
--- NOTE | 2017-10-29 17:48 | ASMTCMCOM ---
CM Note CM Note Notes: Pt is s/p hip surgery following a fall and hip fx at [facility]. She has a hx of dementia and has a POA Efrain Eufemia who lives in [place] [phone]. PT/OT are pending. [facility] will need to assess before pt is able to return there. CM will follow for any d/c needs. Date Signed: 10/29/2017 05:47 PM Electronically Signed By:DEBBY Patrick
[2017-10-30] MEDS: D5W 1/2 NS W/ 20 KCl/L 1,000 ML IV SCH (04:59)
[2017-10-30] MEDS: IPRATROPIUM/ALBUTEROL 3 ML DEYVIAL IH SCH ×4 (05:43→20:41)
[2017-10-30] MEDS: ACETAMINOPHEN 325 MG TAB PO SCH ×4 (13:12→23:49)
--- NOTE | 2017-10-30 16:41 | HOSPPROG ---
Hospitalist Progress Note Assessment/Plan: 86 yo female with dementia residing at [facility], fell and sustained left hip fracture. Initial evaluation revealed hypoxemia, echo is normal except for 4.3cim dilated aorta, stable. Lactate elevated on admission. Patient currently post op left hemiarthroplasy. This morning the patient is doing well much more alert and much easier to move. She is requiring minimal pain medication. -left hip subcapital fracture: Post hemiarthroplasty, doing well, alert, interactive, very poor memory. Does not know where she is. -Sepsis POA with elevated lactacte, normal WBC, afebrile, blood cultures pending -hemoglobin drop of 4 units since preoperative state. This may represent dilution but a recheck of her H&H will be done to assure that there is no further bleeding. -hypoxemia 2/2 atelectasis, ? if underlying pulmonary disease. O2 as needed. No signs of pneumonia on CXR. No Abx needed for pulmonary. ECHO is normal, ECG without acute changes. Echo shows RVSP elevated and aortic dilation at 4.3 cm. -Weight loss of 10 pounds recently. mammography is normal in past. No other history now. Will check stool guaiac and possible out patient workup. A dietary consult has been ordered. -pain management: At this time her pain is in good control and she is participating with PT as directed. -dementia -code: DNR Plan: -O2, bronchodilator if needed, no antibiotic, cardiac function appears stable and normal. Sepsis 2/2 prolonged down time, dehydration, atelectasis. -DVT treatment in 2-3 days -SCD's now -PT in AM Time: 45 minutes Subjective: Alert happy and interactive and no complaints of pain. The patient was seen sitting up in a chair interacting with PT. No complaints of chest pain cough fever or shortness of breath Objective: Vital Signs Temp Pulse Resp BP Pulse Ox 36.7 C 110 H 16 114/66 95 10/30/17 15:43 10/30/17 16:14 10/30/17 16:14 10/30/17 15:43 10/30/17 16:14 Laboratory Results 10/30/17 13:13 10/29/17 03:09 10/29/17 10/30/17 10/31/17 05:59 05:59 05:59 Intake Total 200 1866 300 Output Total 225 600 200 Balance -25 1266 100 PT 14.0 SEC (12.0-15.0) 10/28/17 16:00 INR 1.06 (0.83-1.16) 10/28/17 16:00 - Time Spent With Patient Time Spent with Patient: greater than 35 minutes Time Spent with Patient: Greater than 35 minutes spent on this patients care, greater than 50% of time spent counseling, educating, and coordinating care regarding the above mentioned plan. - Pending Discharge Pending Discharge Within 24 Hours: No Pending Discharge Within 48 Hours: No - Physical Exam Constitutional: no apparent distress Eyes: PERRL, anicteric sclera Ears, Nose, Mouth, Throat: moist mucous membranes, hearing normal Cardiovascular: regular rate and rhythym, no murmur, rub, or gallop Respiratory: no respiratory distress, no rales or rhonchi, clear to auscultation Gastrointestinal: normoactive bowel sounds, soft, non-tender abdomen, no palpable masses Genitourinary: no bladder fullness Skin: warm Musculoskeletal: other (Left hip with he appears to be healing well without excessive swelling or ecchymosis) ICD10 Worksheet Patient Problems: Problems Problem Status Onset Acute congestive heart failure Acute Hypoxia Acute Subcapital fracture of left hip Acute Esophageal foreign body Acute
[2017-10-31 04:58] LABS: PLATELET COUNT 170 10^3/uL (150-400)
[2017-10-31] MEDS: ACETAMINOPHEN 325 MG TAB PO SCH ×2 (05:27→13:13)
[2017-10-31] MEDS: IPRATROPIUM/ALBUTEROL 3 ML DEYVIAL IH SCH ×3 (05:47→15:09)
--- NOTE | 2017-10-31 06:48 | SOAPPROG ---
SOAP Progress Note Assessment/Plan: Assessment: POD#2 hemiarthroplaty Lt hip Plan: 10/31/17 06:46 VSS o/n hgb at 10 today PT/OT SNF ok to start dvt proph x 21 days PO Subjective: resting comfortably Objective: dressing with small amoiunt bloody drainage leg lengths equal calf soft Vital Signs Temp Pulse Resp BP Pulse Ox 36.5 C 110 H 16 119/76 95 10/31/17 04:00 10/31/17 05:49 10/31/17 05:49 10/31/17 04:00 10/31/17 05:49 Laboratory Results 10/31/17 04:16 10/29/17 03:09 10/30/17 10/31/17 11/01/17 05:59 05:59 05:59 Intake Total 1866 550 Output Total 600 1100 Balance 1266 -550 PT 14.0 SEC (12.0-15.0) 10/28/17 16:00 INR 1.06 (0.83-1.16) 10/28/17 16:00 ICD10 Worksheet Patient Problems: Problems Problem Status Onset Acute congestive heart failure Acute Hypoxia Acute Subcapital fracture of left hip Acute Esophageal foreign body Acute
--- NOTE | 2017-10-31 08:33 | HOSPPROG ---
Hospitalist Progress Note Assessment/Plan: Patient is an 86-year-old female with history of dementia who presented after being found down in her bath tub at home. The patient was unable to give any history. In the ER it was noted she had a left hip fracture. She underwent a left jorge l arthroplasty. Today is my 1st encounter with the patient. Chart reviewed. *left hip subcapital fracture: - Post hemiarthroplasty *SIRS POA -resolved, had elevated WBC count and was tachycardic -no clear cut of infectious etiology * anemia -follow * hypoxemia -most likely secondary to atelectasis -reviewed chest xray, no s/sx of pna * dilated aorta at 4.3 cm * recent weight loss * dementia -quite significant *dvt prophylaxis: LMWH *Plan: hopefully can go to rehab soon Subjective: Jessica has no complaints, is aware she had surgery a few days ago. Objective: Vital Signs Temp Pulse Resp BP Pulse Ox 36.6 C 91 14 118/59 L 92 10/31/17 08:00 10/31/17 08:00 10/31/17 08:00 10/31/17 08:00 10/31/17 08:00 Laboratory Results 10/31/17 04:16 10/29/17 03:09 10/30/17 10/31/17 11/01/17 05:59 05:59 05:59 Intake Total 1866 550 Output Total 600 1100 Balance 1266 -550 PT 14.0 SEC (12.0-15.0) 10/28/17 16:00 INR 1.06 (0.83-1.16) 10/28/17 16:00 - Physical Exam Constitutional: not in pain, chronically ill appearing Eyes: PERRL Ears, Nose, Mouth, Throat: hearing normal Cardiovascular: regular rate and rhythym Respiratory: no respiratory distress Skin: warm, No normal color (pale) Musculoskeletal: muscular tenderness (hip area) Neurologic: other (alert) Psychiatric: poor insight, poor judgement, poor memory ICD10 Worksheet Patient Problems: Problems Problem Status Onset Acute congestive heart failure Acute Hypoxia Acute Subcapital fracture of left hip Acute Esophageal foreign body Acute
[2017-10-31] MEDS: ENOXAPARIN 40 MG/0.4 ML SYR SC SCH (13:14)
--- NOTE | 2017-10-31 14:57 | ASMTCMCOM ---
CM Note CM Note Notes: OT/PT rec SNF. Spoke with pt RN printing agent Melisa Rodriguez [phone] who the POA Efrain Fall [phone] has appointed to assist w medical decisions locally since he is in [place]. SNF referrals sent to [facility] and [facility]. Updated clinicals sent to [facility]. Date Signed: 10/31/2017 02:57 PM Electronically Signed By:DEBBY Dugan
[2017-10-31] MEDS ORDERED: IPRATROPIUM/ALBUTEROL 3 ML DEYVIAL IH PRN (16:43)
[2017-10-31] MEDS: ACETAMINOPHEN 325 MG TAB PO PRN (20:12)
[2017-11-01] MEDS ORDERED: BISACODYL 10 MG SUPP PR PRN (02:55)
[2017-11-01] MEDS ORDERED: POLYETHYLENE GLYCOL 3350 17 GM PKT PO PRN (02:55)
[2017-11-01] MEDS ORDERED: LACTULOSE 20 GM/30 ML UDCUP PO PRN (02:55)
[2017-11-01] MEDS ORDERED: MAGNESIUM HYDROXIDE 30 ML UDCUP PO PRN (02:55)
--- NOTE | 2017-11-01 08:08 | SOAPPROG ---
SOAP Progress Note Assessment/Plan: Assessment: POD#2 hemiarthroplaty Lt hip Plan: 10/31/17 06:46 VSS o/n hgb at 10 today PT/OT SNF ok to start dvt proph x 21 days PO 11/01/17 08:07 POD#3 LT hemiarthroplasty hgb stable WBAT PT/OT LMWH x 21 days f/u [facility] 3 weeks snf Subjective: awake/alert this am pain controlled Objective: dressing dry leg lengths equal calf soft 5/5 df/pf Vital Signs Temp Pulse Resp BP Pulse Ox 36.7 C 85 17 128/67 H 97 11/01/17 04:00 11/01/17 04:00 11/01/17 04:00 11/01/17 04:00 11/01/17 04:00 Laboratory Results 11/01/17 04:21 10/29/17 03:09 10/31/17 11/01/17 11/02/17 05:59 05:59 05:59 Intake Total 550 Output Total 1100 950 Balance -550 -950 PT 14.0 SEC (12.0-15.0) 10/28/17 16:00 INR 1.06 (0.83-1.16) 10/28/17 16:00 ICD10 Worksheet Patient Problems: Problems Problem Status Onset Acute congestive heart failure Acute Hypoxia Acute Subcapital fracture of left hip Acute Esophageal foreign body Acute
[2017-11-01] MEDS: ACETAMINOPHEN 325 MG TAB PO PRN (08:19)
[2017-11-01] MEDS: ENOXAPARIN 40 MG/0.4 ML SYR SC SCH (08:20)
[2017-11-01] MEDS ORDERED: SENNOSIDES/DOCUSATE SODIUM TAB PO SCH (09:00)
--- NOTE | 2017-11-01 09:27 | HOSPPROG ---
Hospitalist Progress Note Assessment/Plan: Patient is an 86-year-old female with history of dementia who presented after being found down in her bath tub at home. The patient was unable to give any history. In the ER it was noted she had a left hip fracture. She underwent a left joreg l arthroplasty. *left hip subcapital fracture: - Post hemiarthroplasty *SIRS POA -resolved, had elevated WBC count and was tachycardic -no clear cut of infectious etiology * anemia -follow/stable * hypoxemia -most likely secondary to atelectasis -reviewed chest xray, no s/sx of pna * dilated aorta at 4.3 cm * recent weight loss * dementia -quite significant *dvt prophylaxis: LMWH *Plan: dc to today, patient looks well, up in chair eating breakfast, much more interactive. Subjective: Jessica said she is fine but that her hip is sore. Objective: Vital Signs Temp Pulse Resp BP Pulse Ox 36.8 C 87 17 126/73 H 95 11/01/17 08:00 11/01/17 08:00 11/01/17 08:00 11/01/17 08:00 11/01/17 08:00 Laboratory Results 11/01/17 04:21 10/29/17 03:09 10/31/17 11/01/17 11/02/17 05:59 05:59 05:59 Intake Total 550 Output Total 1100 950 Balance -550 -950 PT 14.0 SEC (12.0-15.0) 10/28/17 16:00 INR 1.06 (0.83-1.16) 10/28/17 16:00 - Physical Exam Constitutional: no apparent distress, appears nourished, uncomfortable Eyes: PERRL Ears, Nose, Mouth, Throat: hearing normal Respiratory: no respiratory distress Skin: warm Musculoskeletal: generalized weakness Neurologic: other (alert and oriented to herself, knows she had surgery and knows she is going to rehab) Psychiatric: interacting appropriately, not anxious, not encephalopathic ICD10 Worksheet Patient Problems: Problems Problem Status Onset Acute congestive heart failure Acute Hypoxia Acute Subcapital fracture of left hip Acute Esophageal foreign body Acute
--- NOTE | 2017-11-01 09:43 | PDIAF ---
- Diagnosis Diagnosis: left subcapital hip fx, demetia Code Status: Do Not Resuscitate - Medication Management Discharge Medications: Medications to Continue on Transfer Calcium Carb W/Vit D [Calcium Carb W/Vit D 500/200 (*)] 500 mg PO DAILY [Last Taken Unknown] Vit A/Vit C/Vit E/Zinc/Copper [Preservision Areds Tablet] 1 each PO DAILY [Last Taken Unknown] Acetaminophen [Tylenol 325mg (*)] 650 mg PO Q6 PRN tab 11/01/17 [Last Taken Unknown] Enoxaparin [Lovenox 40 MG (*)] 40 mg SC DAILY #20 syr 11/01/17 [Last Taken Unknown] Hydrocodone/APAP 5/325 [[place] 5/325 (*)] 1 - 2 tab PO Q3HRS PRN tab 11/01/17 [ Last Taken Unknown] Polyethylene Glycol 3350 [Miralax 17 gm (*)] 17 gm PO DAILY PRN pkt 11/01/17 [ Last Taken Unknown] Sennosides/Docusate Sodium [Senokot-S] 1 - 2 tab PO BID tab 11/01/17 [Last Taken Unknown] Discharge Medications: Refer to the Discharge Home Medication list for PRN reason. - Orders Diet Recommendation: no restrictions on diet Diet Texture: Regular Texture Diet Activity/Weight Bearing Restrictions: posterior hip precautions Additional: lovenox x 20 days. Aspirin has been stopped due to being on lovenox and anemia. This will need to be resumed after treatment w the lovenox. - Labs/Radiology BMP Date: 11/04/17 HCT/HGB Date: 11/04/17 - Follow Up Care Current Providers and Referrals: Debbi Mora MD [Primary Care Provider] - As per Instructions
--- NOTE | 2017-11-01 10:17 | GDS ---
[f rep st] DISCHARGE SUMMARY DISCHARGE DIAGNOSES: 1. Left hip subcapital fracture, status post hemiarthroplasty. 2. Systemic inflammatory response syndrome present on admission. 3. Anemia. 4. Hypoxemia. 5. Dilated aorta at 4.3 cm. 6. Dementia. CONSULTATION: Dr. Celestine Ballard. Briefly, the patient is an 86-year-old woman who has a past medical history of dementia, residing at a memory care unit. She presented after being found down next to her bathtub at home. She was unabl e to report what happened. She was noted to have a left subcapital hip fracture and had surgery for this. She has overall done well with surgery, has gotten out of bed today and up in the chair, eatin g and drinking. She will be discharged to [facility] for further care. HOSPITAL COURSE: 1. Left hip subcapital hip fracture, status post left hemiarthroplasty. Overall doing well on poste rior precautions. 2. SIRS. This resolved. She had an elevated white blood cell count and was tachycardic. She had n o clear-cut infectious etiology. 3. Anemia, overall stable. Will have this monitored in the outpatient setting. 4. Hypoxemia. This is most likely secondary atelectasis. I reviewed her chest x-ray. She has no s igns or symptoms of pneumonia. 5. Dilated aorta. This is at 4.3 cm, to be monitored in the outpatient setting. I will update Dr. Mora in regard to this. 6. Recent weight loss. She is starting to eat and drink well. I suspect this is from her dementia. 7. Dementia. This is quite severe. She seems better today than during my evaluation yesterday. DISCHARGE CONDITION: Stable. Blood pressure is 126/73. Heart rate is 87. Respiratory rate of 17. O2 sats on 3 L are 95%. Temperature is 36.8 Celsius. DISCHARGE MEDICATIONS: Please see the EMR. DISCHARGE INSTRUCTIONS: 1. To follow up with Dr. Ballard. 2. To follow up with Dr. Mora. 3. Her aspirin has been stopped while she is on the Lovenox and having ongoing anemia. This will ne ed to be resumed. Greater than 30 minutes discharging and coordinating her care. I will also leave a message for Dr. Mora in regard to the patient's admission and discharge. /[id number]/MODL
[2017-11-01 11:07] VITALS: BP 120/68; PULSE 104; RESP 16; TEMP 98; O2SAT 90
--- NOTE | 2017-11-02 08:55 | ASDISCHSUM ---
Discharge Information Plan Status:SNF Medically Cleared to Leave: Discharge Date:11/01/2017 01:47 PM D/C Disposition:Detention Facility ADT D/C Disposition:Detention Facility Projected Discharge Date:11/01/2017 11:00 AM Transportation at D/C: Discharge Delay Reason: Follow-Up Date:11/01/2017 11:00 AM Discharge Slot: Final Diagnosis: Placement Information Referral Type:*Snf/SNF Referral ID:[id number] Provider Name:Oleg Romo [facility] Address 1:[address] Address 2: City:[place] Selection Factors: State:[place] Patient Contact Information Contact Name:KELSEYNiurka Relationship:Cousin Address:[address] City:[place] Alternate Phone: State/Zip Code:[place] [address] Email: Financial Information Financial Class:Medicare Primary Plan Desc:MEDICARE INPATIENT Primary Plan Number:[id number] Secondary Plan Desc:[employer]/M[employer] SUPPLEMENT Secondary Plan Number:[id number] Assessment Information [facility] CM Progress Note CM Note CM Note Notes: Pt is s/p hip surgery following a fall and hip fx at [facility]. She has a hx of dementia and has a POA Efrain Fall who lives in [place] [address] . PT/OT are pending. [facility] will need to assess before pt is able to return there. CM will follow for any d/c needs. Date Signed: 10/29/2017 05:47 PM Electronically Signed By:DEBBY Patrick [facility] CM Progress Note CM Note CM Note Notes: OT/PT rec SNF. Spoke with pt RN dental assistant instructor Melisa Rodriguez [phone] who the POA Efrain Fall [phone] has appointed to assist w medical decisions locally since he is in [place]. SNF referrals sent to [facility], [facility] and [facility]. Updated clinicals sent to [facility]. Date Signed: 10/31/2017 02:57 PM Electronically Signed By:DEBBY Dugan Case Management Discharge Plan Note Case Management Discharge Discharge Order Complete? Answers: Yes Patient to Obtain Answers: Other Notes: [facility] Medications Transportation Arranged Answers: Other Notes: [facility] Transport will Pick (Date 11/01/2017 01:00 PM & Time) Faxed Final Orders Answers: Yes Discharge Comments Notes: Patient discharged to [facility]. [facility] will transport and bill facility. Patient's dental assistant instructor Melisa came by [facility] and was notified of d/c plan. She will notify all interested parties. ARLETTE Garcia to call report. Date Signed: 11/01/2017 11:04 AM Electronically Signed By:Radha Washington RN Intervention Information Intervention Type:*IM-Signed Date of Service:11/01/2017 11:14 AM Patient Type:Inpatient Staff Member:Jeanna Daniel Hours: Discipline: Severity: Comment:
== END 2017-11-01 13:47 | DRG 470 ==
LOC: EDUNIT# → F2W 20:30 → F3N 10-29 11:51
PROVIDERS: ADMIT Internal Medicine; ATTEND Hospitalist
PROC: 0SRS0JA Replacement of Left Hip Joint, Femoral Surface with Synthetic Substitute, Uncemented, Open Approach (ICD-10-PCS; principal; 2017-10-29 08:00)
DX: S72.012A Unspecified intracapsular fracture of left femur, initial encounter for closed fracture (principal); W18.2XXA Fall in (into) shower or empty bathtub, initial encounter; Y92.192 Bathroom in other specified residential institution as the place of occurrence of the external cause; Y93.E1 Activity, personal bathing and showering; J98.11 Atelectasis; R09.02 Hypoxemia; F03.90 Unspecified dementia, unspecified severity, without behavioral disturbance, psychotic disturbance, mood disturbance, and anxiety; H35.30 Unspecified macular degeneration; K22.0 Achalasia of cardia; Z66 Do not resuscitate
CPT/HCPCS: 82607-90; 96374; 97116-GP; 97161-GP; 97166-GO; 97530-GP; 97535-GO; G8978-GP-CK; G8979-GP-CJ; G8987-GO-CM; G8988-GO-CL; J0456; J0690; J0696; J1650; J2704; J3010